=== PATIENT | female | born 1980 | race Caucasian/White ===

== ENCOUNTER 2020-06-08 15:33 | Emergency (ER) | payer BC, OTHER ==
[~2020-06-08] VITALS: Ht 180 cm; Wt 100.0 kg
[2020-06-08] MEDS ORDERED: MONT10TA97 (15:54)
[2020-06-08] MEDS ORDERED: PRD20T PO (16:05)
[2020-06-08] MEDS ORDERED: ACHD5005 PO (16:05)
--- NOTE | 2020-06-08 16:05 | ED Lower Extremity ---
General Chief Complaint: Lower Extremity Stated Complaint: SCIATIC NERVE PAIN Nursing Triage Note: patient reports R leg pain Nursing Sepsis Screen: No Definite Risk Source: patient Exam Limitations: no limitations History of Present Illness Date Seen by Provider: Jun 08, 2020 Time Seen by Provider: 16:01 Initial Comments To ER with reports of low back and right leg pain. This starts in the sacral region and radiates all the way down the leg to the calf. She denies any swelling or history of DVT. No loss of bowel or bladder control, no history of cancer, no history of IV drug use, no loss of sensation of genitals, no loss of control of bowel or bladder. She has been trying ibuprofen and Flexeril at home without much relief. She has had 2 massages this week without relief. She has had this before but it typically resolves. Onset: last week Severity: moderate Pain/Injury Location: right leg Method of Injury: unknown Modifying Factors: Worse With Movement Allergies and Home Medications Allergies Coded Allergies: No Known Drug Allergies (Unverified , 06/08/20) Patient Home Medication List Home Medication List Reviewed: Yes Review of Systems Constitutional: see HPI EENTM: see HPI Respiratory: no symptoms reported Cardiovascular: no symptoms reported Genitourinary: no symptoms reported Musculoskeletal: no symptoms reported Skin: no symptoms reported Psychiatric/Neurological: No Symptoms Reported Past Ldgwqsh-Ukewgw-Pfhzmj Hx Patient Social History Alcohol Use: Denies Use Recreational Drug Use: No Smoking Status: Never a Smoker Recent Foreign Travel: No Contact w/Someone Who Travel: No Recent Infectious Disease Expo: No Recent Hopitalizations: No Past Medical History Surgeries: No Respiratory: No Cardiac: No Neurological: No Genitourinary: No Gastrointestinal: No Musculoskeletal: No Endocrine: No HEENT: No Cancer: No Psychosocial: No Integumentary: No Blood Disorders: No Physical Exam Vital Signs Vital Signs - First Documented 06/08/20 15:50 Temp 37.0 Pulse 100 Resp 18 B/P (MAP) 130/84 (99) Pulse Ox 98 Capillary Refill : Less Than 3 Seconds Height, Weight, BMI Height: '" Weight: lbs. oz. kg; 30.00 BMI Method: General Appearance: WD/WN, no apparent distress Respiratory: no respiratory distress, no accessory muscle use Hips: bilateral hip non-tender, bilateral hip normal inspection, bilateral hip normal range of motion Legs: bilateral leg non-tender, bilateral leg normal inspection, bilateral leg normal range of motion Knees: bilateral knee non-tender, bilateral knee normal inspection, bilateral knee normal range of motion Ankles: bilateral ankle non-tender, bilateral ankle normal inspection, bilateral ankle normal range of motion Neurologic/Psychiatric: alert, normal mood/affect, oriented x 3 Skin: normal color, warm/dry She can dorsiflex and plantar flex her great toe and foot. Progress/Results/Core Measures Results/Orders Vital Signs/I&O 06/08/20 15:50 Temp 37.0 Pulse 100 Resp 18 B/P (MAP) 130/84 (99) Pulse Ox 98 Blood Pressure Mean: 99 Departure Impression Primary Impression: Lumbar radiculopathy, acute Disposition: 01 HOME, SELF-CARE Condition: Stable Departure-Patient Inst. Decision time for Depature: 16:03 Referrals: ODILIA PASTRANA DO (PCP/Family) Primary Care Physician Patient Instructions: Radiculopathy Add. Discharge Instructions: 1. Return to ER for any concerns or worsening symptoms 2. Follow-up with your doctor next week 3. All discharge instructions reviewed with patient and/or family. Voiced understanding. Scripts Hydrocodone/Acetaminophen (Hydrocodone-Acetamin 5-325 mg) 1 Each Tablet 1 EACH PO Q4H PRN for PAIN-MODERATE (5-7), #14 TAB Prov: COLETTE PARK APRN 06/08/20 Prednisone (Prednisone) 20 Mg Tab 40 MG PO DAILY, #8 TAB 0 Refills Prov: COLETTE PARK APRN 06/08/20 COLETTE PARK APRN Jun 08, 2020 16:05
[2020-06-08 16:11] VITALS: BP 130/84
== END 2020-06-08 16:11 | disposition home or self-care (01) ==
LOC: EDUNIT# 15:33 → ER 15:36
DX: M54.16 Radiculopathy, lumbar region (principal)
CPT/HCPCS: 99283